=== PATIENT | male | born 1950 | race Caucasian/White ===

== ENCOUNTER 2017-07-01 09:06 | Emergency (ER) | payer SELFPAY ==
[~2017-07-01] VITALS: Ht 177.8 cm; Wt 88.0 kg
[2017-07-01 09:56] LABS: BASOPHILS % 1.1 % (0.0-2.0); EOSINOPHILS % 2.1 % (0.0-5.0); HEMATOCRIT. 41.3 % (42.0-52.0); HEMOGLOBIN. 14.5 g/dL (14.0-18.0); LYMPHOCYTES % 33.7 % (20.0-50.0); MEAN CORPUSCULAR HEMOGLOBIN 32.5 pg (28.0-32.0); MEAN CORPUSCULAR VOLUME 92.9 fL (80.0-94.0); MEAN PLATELET VOLUME 7.6 fl (7.4-10.4); MONOCYTES % 7.2 % (2.0-8.0); NEUTROPHILS % 55.9 % (40.0-76.0); PLATELET 305 x1000/uL (130-400); RED BLOOD CELL COUNT 4.45 mill/uL (4.7-6.1); RED CELL DISTRIBUTION WIDTH 13.1 % (11.6-14.6)
[2017-07-01 10:02] LABS: CHLORIDE 101 mEq/L (98-107); INR 1.1; PROTHROMBIN TIME 11.1 sec (9.4-11.6)
[2017-07-01 10:06] LABS: ETHANOL BLOOD < 10 mg/dL
[2017-07-01 10:09] LABS: LDL CHOLESTEROL 127 mg/dL (5-100)
[2017-07-01] MEDS ORDERED: ASPIRIN 300MG SUPP PR ONE (10:45)
[2017-07-01 11:19] VITALS: BP 182/98
[2017-07-01] MEDS ORDERED: IOHEXOL-350 100 ML BOTTLE ONE (11:45)
== END 2017-07-01 11:38 | disposition short-term general hospital (02) ==
LOC: ER 09:39 → ENRESERV 09:54 → CANRESERV 09:54 → ER 11:38 → CANBEDREQ 13:52
DX: I63.232 Cerebral infarction due to unspecified occlusion or stenosis of left carotid arteries (principal); R47.81 Slurred speech; G81.91 Hemiplegia, unspecified affecting right dominant side; E78.5 Hyperlipidemia, unspecified; R03.0 Elevated blood-pressure reading, without diagnosis of hypertension; F17.210 Nicotine dependence, cigarettes, uncomplicated
CPT/HCPCS: 36415; 70450; 70496; 71045; 80053; 82962; 83721; 84484; 85025; 85610; 93005; 99291; G0482; Q9967; Z7610